=== PATIENT | male | born 1960 | race Caucasian/White ===

== ENCOUNTER 2020-05-04 18:03 | Outpatient (RCR) | payer OTHER, SELFPAY ==
[2020-05-04] MEDS: COVID-19 VACC, MRNA(PFIZER)/PF 30 MCG/0.3 ML SYRINGE IM (17:03)
[2020-05-25] MEDS: COVID-19 VACC, MRNA(PFIZER)/PF 30 MCG/0.3 ML SYRINGE IM (16:42)
== END 2020-07-27 23:59 ==
LOC: IMMUN 18:03
PROVIDERS: Visit Provider Family Medicine
DX: Z23 Encounter for immunization (principal)
CPT/HCPCS: 0001A; 0002A; 91300

== ENCOUNTER → 2020-12-20 08:49 | Outpatient (CLI) | payer OTHER, SELFPAY ==
--- NOTE | 2020-12-20 08:54 | RAD_ITS ---
STUDY: X-RAY - LEFT ANKLE REASON FOR EXAM: Left ankle pain, evaluate for arthritis. TECHNIQUE: 3 weightbearing view(s) of the ankle. COMPARISON: None. FINDINGS: There is chronic healed fracture deformity of the distal fibular diaphysis. Normal medial and lateral malleoli. Normal tibiotalar articulation and ankle mortise. There is a small posterior and plantar calcaneal enthesophytes. There is a dorsal spur of the neck of the talus. There is an os trigonum. The visualized subtalar, talonavicular, and calcaneocuboid articulations are normal. The soft tissue structures are unremarkable. RAD/Ankle min 3 Views IMPRESSION: Chronic healed fracture deformity of the distal fibular diaphysis Mild calcaneal enthesopathy. Dorsal spur of the neck of the talus. No radiographic manifestations of arthropathy. Electronically Signed: Stevan Howe MD at 11:52 EDT Tel , Service support ,
== END ==
PROVIDERS: PCP Internal Medicine; Referring Provider Podiatrist; Visit Provider Podiatrist
DX: M19.072 Primary osteoarthritis, left ankle and foot (principal)
CPT/HCPCS: 73610